=== PATIENT | female | born 1935 | race Caucasian/White ===

== ENCOUNTER 2018-09-05 14:11 | Emergency (ER) | payer MEDICARE, BC ==
[~2018-09-05] VITALS: Wt 84.6 kg
[2018-09-05] MEDS ORDERED: GENTAMICIN EYE D5 ML OP (15:01)
[2018-09-05] MEDS ORDERED: AMLODIPINE BES2.5 MG PO (15:01)
[2018-09-05] MEDS ORDERED: DOCUSATE SODIU100 M3 PO (15:01)
[2018-09-05] MEDS ORDERED: FUROSEMIDE20 MG PO (15:02)
[2018-09-05] MEDS ORDERED: LISINOPRIL10 MG PO (15:02)
[2018-09-05] MEDS ORDERED: GLYCOLAX17 GM/DOSE PO (15:02)
[2018-09-05] MEDS ORDERED: FUROSEMIDE40 MG (15:02)
[2018-09-05] MEDS ORDERED: POTASSIUM CHLO20 ME4 PO (15:03)
[2018-09-05 15:31] LABS: EOS # 0.5 (0.04-0.40); EOS % 4.9 % (1.0-5.0); HEMATOCRIT 50.5 % (37.0-47.0); HEMOGLOBIN 14.4 g/dL (12.5-16.0); LYMPH# 3.8 (1.50-4.00); MEAN CELL VOLUME 100 fl (78-100); MEAN CORPUSCULAR HEMOGLOBIN 29 pg (27-31); MONO # 0.8 (0.20-0.80); NEU # 5.4 (1.40-6.50); PLATELET COUNT 110 K/mm3 (130-400); RED BLOOD COUNT 5.04 M/mm3 (4.10-5.30); WHITE BLOOD COUNT 10.6 K/mm3 (4.8-10.8)
[2018-09-05 15:41] LABS: MEAN CORPUSCULAR HGB CONC 29 g/dL (33-37); RED CELL DISTRIBUTION WIDTH 18.8 % (11.5-14.5)
[2018-09-05 16:13] LABS: ALBUMIN 3.4 g/dL (3.5-5.0); TOTAL BILIRUBIN 0.6 mg/dL (0.2-1.3); TOTAL PROTEIN 6.7 g/dL (6.3-8.2)
[2018-09-05 16:42] LABS: URINE APPEARANCE HAZY; URINE BILIRUBIN NEGATIVE (NEGATIVE); URINE BLOOD NEGATIVE (NEGATIVE); URINE COLOR YELLOW; URINE GLUCOSE NEGATIVE (NEGATIVE); URINE KETONE NEGATIVE (NEGATIVE); URINE LEUKOCYTE ESTERASE 2+ (NEGATIVE); URINE NITRATE POSITIVE (NEGATIVE); URINE PROTEIN(semi-quant) TRACE mg/dL (NEGATIVE); URINE UROBILINOGEN NORMAL (NORMAL)
[2018-09-05 19:14] VITALS: BP 75/49
== END 2018-09-05 19:14 | disposition other institution (70) ==
LOC: ED 14:11
PROVIDERS: Nurse Practitioner Primary Care
DX: I99.8 Other disorder of circulatory system (principal); I10 Essential (primary) hypertension; F03.90 Unspecified dementia, unspecified severity, without behavioral disturbance, psychotic disturbance, mood disturbance, and anxiety
CPT/HCPCS: J7030; J7070

== ENCOUNTER 2018-09-05 17:25 | Inpatient (IN) | payer MEDICARE, BC ==
[~2018-09-05] VITALS: Ht 167.6 cm; Wt 85.9 kg
[~2018-09-05 17:25] MED LIST: AMLODIPINE BES2.5 MG PO; DOCUSATE SODIU100 M3 PO; FUROSEMIDE20 MG PO; FUROSEMIDE40 MG; GENTAMICIN EYE D5 ML OP; GLYCOLAX17 GM/DOSE PO; LISINOPRIL10 MG PO; POTASSIUM CHLO20 ME4 PO
[2018-09-05 17:48] VITALS: BP 75/49
[2018-09-05 19:20] LABS: EOS # 0.6 (0.04-0.40); HEMATOCRIT 46.7 % (37.0-47.0); HEMOGLOBIN 13.3 g/dL (12.5-16.0); LYMPH# 3.6 (1.50-4.00); MEAN CELL VOLUME 100 fl (78-100); MEAN CORPUSCULAR HEMOGLOBIN 29 pg (27-31); MONO # 0.7 (0.20-0.80); NEU # 4.9 (1.40-6.50); PLATELET COUNT 83 K/mm3 (130-400); RED BLOOD COUNT 4.66 M/mm3 (4.10-5.30); WHITE BLOOD COUNT 9.9 K/mm3 (4.8-10.8)
[2018-09-05 19:28] LABS: ALBUMIN 2.9 g/dL (3.5-5.0); CALCIUM 9.3 mg/dL (8.4-10.2); POTASSIUM 5.6 mmol/L (3.6-5.0); TOTAL BILIRUBIN 0.5 mg/dL (0.2-1.3)
[2018-09-05 20:02] LABS: MEAN CORPUSCULAR HGB CONC 29 g/dL (33-37); RED CELL DISTRIBUTION WIDTH 18.4 % (11.5-14.5)
[2018-09-05 21:43] VITALS: BP 93/48
[2018-09-05 21:48] LABS: EOS # 0.6 (0.04-0.40); EOS % 5.8 % (1.0-5.0); HEMATOCRIT 44.6 % (37.0-47.0); HEMOGLOBIN 12.9 g/dL (12.5-16.0); LYMPH# 3.9 (1.50-4.00); MEAN CELL VOLUME 101 fl (78-100); MEAN CORPUSCULAR HEMOGLOBIN 29 pg (27-31); MONO # 0.7 (0.20-0.80); NEU # 4.5 (1.40-6.50); PLATELET COUNT 96 K/mm3 (130-400); RED BLOOD COUNT 4.44 M/mm3 (4.10-5.30); WHITE BLOOD COUNT 9.8 K/mm3 (4.8-10.8)
[2018-09-05 21:54] LABS: ALBUMIN 2.8 g/dL (3.5-5.0); CALCIUM 9.1 mg/dL (8.4-10.2); POTASSIUM 5.1 mmol/L (3.6-5.0); TOTAL BILIRUBIN 0.4 mg/dL (0.2-1.3); TOTAL PROTEIN 5.9 g/dL (6.3-8.2)
[2018-09-05 22:08] LABS: MEAN CORPUSCULAR HGB CONC 29 g/dL (33-37); RED CELL DISTRIBUTION WIDTH 18.3 % (11.5-14.5)
[2018-09-05 23:17] VITALS: BP 80/43
[2018-09-06 00:24] LABS: CALCIUM 9.1 mg/dL (8.4-10.2)
[2018-09-06 03:12] VITALS: BP 86/57
[2018-09-06 06:18] VITALS: BP 64/40
[2018-09-06 08:00] LABS: CALCIUM 8.6 mg/dL (8.4-10.2); POTASSIUM 4.8 mmol/L (3.6-5.0)
[2018-09-06 11:00] VITALS: BP 76/49
[2018-09-06 12:29] LABS: ALBUMIN 2.7 g/dL (3.5-5.0); CALCIUM 8.5 mg/dL (8.4-10.2); TOTAL BILIRUBIN 0.7 mg/dL (0.2-1.3); TOTAL PROTEIN 5.5 g/dL (6.3-8.2)
[2018-09-06 15:23] VITALS: BP 85/55
[2018-09-06 15:41] LABS: ALBUMIN 2.7 g/dL (3.5-5.0); CALCIUM 8.4 mg/dL (8.4-10.2); POTASSIUM 4.7 mmol/L (3.6-5.0); TOTAL BILIRUBIN 0.7 mg/dL (0.2-1.3); TOTAL PROTEIN 5.5 g/dL (6.3-8.2)
[2018-09-06 18:20] VITALS: BP 99/64
[2018-09-06 23:00] VITALS: BP 68/43
[2018-09-07 02:53] VITALS: BP 96/61
[2018-09-07 06:18] VITALS: BP 84/50
[2018-09-07 07:37] LABS: CALCIUM 7.9 mg/dL (8.4-10.2); POTASSIUM 4.1 mmol/L (3.6-5.0)
[2018-09-07 11:15] VITALS: BP 102/58
[2018-09-07 15:10] VITALS: BP 134/75
[2018-09-07 18:22] VITALS: BP 130/78
[2018-09-07 23:16] VITALS: BP 105/69
[2018-09-08] VITALS (7 sets, daily range): BP systolic 97–138; BP diastolic 53–79
[2018-09-08 08:23] LABS: CALCIUM 8.3 mg/dL (8.4-10.2); POTASSIUM 4.2 mmol/L (3.6-5.0)
[2018-09-08 08:28] LABS: URINE APPEARANCE HAZY; URINE BILIRUBIN NEGATIVE (NEGATIVE); URINE BLOOD 50 ery/uL (NEGATIVE); URINE COLOR YELLOW; URINE GLUCOSE NEGATIVE (NEGATIVE); URINE KETONE NEGATIVE (NEGATIVE); URINE LEUKOCYTE ESTERASE 2+ (NEGATIVE); URINE NITRATE NEGATIVE (NEGATIVE); URINE PROTEIN(semi-quant) 1+ mg/dL (NEGATIVE); URINE UROBILINOGEN NORMAL (NORMAL)
[2018-09-09 03:23] VITALS: BP 121/69
[2018-09-09 06:12] VITALS: BP 89/52
[2018-09-13] MEDS ORDERED: HYDROCODON-ACET15 ML PO (11:37)
[2018-09-13] MEDS ORDERED: ACETAMINOP160 MG/13 PO (11:37)
[2018-09-13] MEDS ORDERED: PROTONIX40 MG/Pack PO (11:37)
== END 2018-09-09 10:45 | disposition swing bed (61) | DRG 683 ==
LOC: MED/SURG 17:25
PROVIDERS: Family Medicine; Nurse Practitioner Family; ADMIT Nurse Practitioner Primary Care
DX: N17.9 Acute kidney failure, unspecified (principal); E87.0 Hyperosmolality and hypernatremia; E86.0 Dehydration; E87.5 Hyperkalemia; Z66 Do not resuscitate; Z51.5 Encounter for palliative care; F03.90 Unspecified dementia, unspecified severity, without behavioral disturbance, psychotic disturbance, mood disturbance, and anxiety; F32.9 Major depressive disorder, single episode, unspecified; I10 Essential (primary) hypertension; I95.9 Hypotension, unspecified; R23.4 Changes in skin texture
CPT/HCPCS: J7070

== ENCOUNTER → 2019-12-25 | Outpatient (CLI) | payer MEDICARE, BC, MEDICAID ==
[2018-09-13 12:10] VITALS: BP 105/60
[~2019-12-25] MED LIST changes: +ACETAMINOP160 MG/13 PO; +HYDROCODON-ACET15 ML PO; +PROTONIX40 MG/Pack PO
[2019-12-25 06:32] LABS: HEMATOCRIT 38.9 % (37.0-47.0); MEAN PLATELET VOLUME 10.8 fl (7.4-10.4); RED BLOOD COUNT 4.2 M/mm3 (4.10-5.30); RED CELL DISTRIBUTION WIDTH 13.8 % (11.5-14.5); WHITE BLOOD COUNT 10.6 K/mm3 (4.8-10.8)
[2019-12-25 06:48] LABS: ALBUMIN 2.7 g/dL (3.4-4.8); POTASSIUM 4.5 mmol/L (3.5-5.1)
[2019-12-25 06:49] LABS: CALCIUM 8.8 mg/dL (8.3-10.5)
[2019-12-25 06:50] LABS: TOTAL PROTEIN 5.9 g/dL (6.2-8.1)
[2019-12-25 06:52] LABS: TOTAL BILIRUBIN 0.3 mg/dL (0.2-1.2)
== END ==
LOC: LAB 05:00
PROVIDERS: Family Medicine
DX: I10 Essential (primary) hypertension (principal)

== ENCOUNTER → 2020-07-07 | Outpatient (CLI) | payer MEDICARE, MEDICAID ==
[2018-09-13 12:10] VITALS: BP 105/60
== END ==
LOC: RAD 14:31
DX: I51.7 Cardiomegaly (principal)

== ENCOUNTER → 2020-08-31 | Outpatient (CLI) | payer MEDICARE, MEDICAID ==
[2018-09-13 12:10] VITALS: BP 105/60
[2020-08-31 11:31] LABS: HEMATOCRIT 43.1 % (37.0-47.0); HEMOGLOBIN 12.5 g/dL (12.5-16.0); MEAN CELL VOLUME 95 fl (78-100); MEAN CORPUSCULAR HEMOGLOBIN 27 pg (27-31); MEAN PLATELET VOLUME 9.9 fl (7.4-10.4); PLATELET COUNT 343 K/mm3 (130-400); RED BLOOD COUNT 4.56 M/mm3 (4.10-5.30); WHITE BLOOD COUNT 9.3 K/mm3 (4.8-10.8)
[2020-08-31 11:36] LABS: ALBUMIN 3.1 g/dL (3.4-4.8); POTASSIUM 4.7 mmol/L (3.5-5.1)
[2020-08-31 11:37] LABS: CALCIUM 9.1 mg/dL (8.3-10.5)
[2020-08-31 11:39] LABS: TOTAL PROTEIN 6.1 g/dL (6.2-8.1)
[2020-08-31 11:40] LABS: MEAN CORPUSCULAR HGB CONC 29 g/dL (33-37); TOTAL BILIRUBIN 0.4 mg/dL (0.2-1.2)
[2020-08-31 11:50] LABS: LYMPHOCYTE 23 % (20-51); MONOCYTE 8 % (3-10); NEUTROPHILS 54 % (42-75)
== END ==
LOC: RAD 11:06
PROVIDERS: Family Medicine
DX: K59.00 Constipation, unspecified (principal); R06.2 Wheezing; R09.89 Other specified symptoms and signs involving the circulatory and respiratory systems; Z99.3 Dependence on wheelchair

== ENCOUNTER → 2020-11-17 | Outpatient (CLI) | payer MEDICARE, MEDICAID ==
[2018-09-13 12:10] VITALS: BP 105/60
== END ==
LOC: RAD 10:37
DX: R91.8 Other nonspecific abnormal finding of lung field (principal)

== ENCOUNTER → 2020-12-06 | Outpatient (CLI) | payer MEDICARE, MEDICAID ==
[2018-09-13 12:10] VITALS: BP 105/60
[2020-12-06 12:32] LABS: ALBUMIN 2.9 g/dL (3.4-4.8)
[2020-12-06 12:33] LABS: POTASSIUM 4.6 mmol/L (3.5-5.1)
[2020-12-06 12:34] LABS: CALCIUM 9.3 mg/dL (8.3-10.5)
[2020-12-06 12:35] LABS: TOTAL PROTEIN 5.7 g/dL (6.2-8.1)
[2020-12-06 12:37] LABS: TOTAL BILIRUBIN 0.3 mg/dL (0.2-1.2)
== END ==
LOC: RAD 12:08 → LAB 12:08
PROVIDERS: Family Medicine
DX: R91.8 Other nonspecific abnormal finding of lung field (principal); K76.9 Liver disease, unspecified; N28.9 Disorder of kidney and ureter, unspecified
CPT/HCPCS: Q9967